=== PATIENT | female | born 1970 | race Caucasian/White ===

== ENCOUNTER → 2017-10-09 | Outpatient (CLI) | payer BC ==
--- NOTE | 2017-10-09 08:24 | MR ---
EXAMINATION TYPE: MR shoulder RT wo con DATE OF EXAM: 10/09/2017 8:15 AM COMPARISON: NONE HISTORY: Pain in right shoulder TECHNIQUE: Multiplanar, multisequence imaging of the right shoulder is performed without contrast. FINDINGS: There is no evidence of an os acromiale. There is a minimal inflammatory change in the righ t AC joint. There is a small glenohumeral joint effusion. There is increased fluid in the biceps tendon sheath. I do not see evidence of rotator cuff tear. The cartilaginous glenoid labrum is intact. The biceps tendon is normally situated in the biceps tendon sheath and inserts normally upon the saurav ps anchor. There is minimal pseudocystic change within the humeral head, an indirect sign of impingem ent. IMPRESSION: 1. NO EVIDENCE OF A ROTATOR CUFF TEAR. 2. MILD INFLAMMATORY CHANGE IN THE RIGHT AC JOINT. 3. PSEUDOCYSTIC CHANGE IN THE HUMERAL HEAD, AN INDIRECT SIGN OF IMPINGEMENT.
== END | disposition home or self-care (01) ==
LOC: RADMRIMAIN 07:01
PROVIDERS: ATTEND Orthopaedic Surgery
DX: M13.811 Other specified arthritis, right shoulder (principal); M25.811 Other specified joint disorders, right shoulder

== ENCOUNTER → 2017-12-07 | Outpatient (CLI) | payer BC ==
--- NOTE | 2017-12-07 17:12 | XR ---
Thoracic spine HISTORY: Pain 3 views of the thoracic spine Thoracic vertebral bodies show preserved height, alignment, and bone mineralization. There is multile lenore spondylosis. Disc spaces are maintained. IMPRESSION: Thoracic spondylosis, degenerative disc disease.
--- NOTE | 2017-12-07 17:12 | XR ---
Cervical spine HISTORY: Pain 2 views of the cervical spine Straightening of the cervical spine could be due to muscle spasm. Cervical vertebral bodies show pres erved height, alignment, and bone mineralization. Prevertebral soft tissues and disc spaces are maint ained. IMPRESSION: Loss of lordosis.
== END | disposition home or self-care (01) ==
LOC: RADXRYALE 15:04
PROVIDERS: ATTEND Family Medicine
DX: M51.34 Other intervertebral disc degeneration, thoracic region (principal); M47.814 Spondylosis without myelopathy or radiculopathy, thoracic region; M53.82 Other specified dorsopathies, cervical region; M54.2 Cervicalgia
CPT/HCPCS: 72040; 72072

== ENCOUNTER → 2017-12-24 | Outpatient (CLI) | payer BC ==
--- NOTE | 2017-12-24 17:04 | US ---
EXAMINATION TYPE: US kidneys/renal and bladder DATE OF EXAM: 12/24/2017 COMPARISON: NONE CLINICAL HISTORY: R19.00 Abdominal or pelvic swelling, mass, or...... Abdomen swelling, intermittent abdomen pain EXAM MEASUREMENTS: Right Kidney: 10.4 x 4.5 x 4.9 cm Left Kidney: 11.1 x 5.0 x 5.0 cm Right Kidney: no hydronephrosis or masses seen, inferior pole limited by overlying bowel gas Left Kidney: no hydronephrosis or masses seen, superior pole limited by overlying bowel gas Bladder: wnl Bilateral Jets seen: yes IMPRESSION: 1. Normal renal ultrasound
--- NOTE | 2017-12-24 17:05 | US ---
EXAMINATION TYPE: US duplex aorta DATE OF EXAM: 12/24/2017 COMPARISON: NONE CLINICAL HISTORY: intra abd swelling. Abdomen swelling, intermittent abdomen pain EXAM MEASUREMENTS: Abdominal Aorta: Proximal: 2.1 x 2.4cm Mid: 1.4 x 1.6cm Distal: 1.2 x 1.3cm Right Iliac: 0.7 x 0.8cm Left Iliac: 0.8 x 0.8cm No significant abnormality seen at this time to account for patient's clinical symptoms. IMPRESSION: 1. Normal abdominal aortic aneurysm.
== END ==
LOC: RADUSWWP 07:52
PROVIDERS: ATTEND Family Medicine
DX: R19.00 Intra-abdominal and pelvic swelling, mass and lump, unspecified site (principal)
CPT/HCPCS: 76770; 93979